=== PATIENT | female | born 2000 ===

== ENCOUNTER → 2023-05-14 | Outpatient (CLI) | payer OTHER ==
[2023-05-15 07:07] LABS: Mumps IgG Antibody 87.5 AU/mL (Immune >10.9); Rubeola IgG Antibody 27.3 AU/mL (Immune >16.4)
== END | disposition home or self-care (01) ==
LOC: LAB 08:41
PROVIDERS: ATTEND Emergency Medicine
DX: Z01.84 Encounter for antibody response examination (principal)
CPT/HCPCS: 36415; 86706; 86735; 86762; 86765; 86787